=== PATIENT | male | born 1995 | race Caucasian/White ===

== ENCOUNTER 2021-02-01 20:54 | Emergency (ER) | payer MEDICAID ==
[~2021-02-01] VITALS: Ht 180.3 cm; Wt 89.8 kg
--- NOTE | 2021-02-01 21:28 | NUR ---
PT AMBULATED TO ER WITH C/O PAINFUL MASS ON BUTTOCK X3 DAYS. AFEBRILE.
--- NOTE | 2021-02-01 21:35 | NUR ---
DR. MACIEL AT BEDSIDE, MSE IN PROGRESS.
[2021-02-01] MEDS: LIDOCAINE 2%-EPI 1:100,000 20 ML VIAL IJ ONE (21:48)
[2021-02-01] MEDS ORDERED: SULF1TAB48 PO (22:34)
[2021-02-01] MEDS ORDERED: OXYC-128 PO (22:34)
[2021-02-01] MEDS: SULFAMETH/TRIMETH 800/160 MG TABLET PO ONE (22:35)
[2021-02-01] MEDS ORDERED: SULFAMETH/TRIMETH 800/160 MG TABLET ONE (22:44)
--- NOTE | 2021-02-01 22:48 | NUR ---
Patient discharged to home in stable condition. No changes in LOC. Written and verbal after care instructions given. Patient verbalizes understanding of instructions. Stressed follow up or return to ER for worsening s/s. Steady gait, picked up by mother.
[2021-02-01 22:49] VITALS: BP 129/86
== END 2021-02-01 22:49 | disposition home or self-care (01) ==
LOC: ER 20:56
DX: L05.01 Pilonidal cyst with abscess (principal); Z91.013 Allergy to seafood
CPT/HCPCS: 10080; 87070; 99284; J3490; 87077; A4663

== ENCOUNTER 2021-02-03 14:12 | Emergency (ER) | payer MEDICAID ==
[~2021-02-03] VITALS: Ht 175.3 cm; Wt 89.8 kg
[~2021-02-03 14:12] MED LIST: OXYC-128 PO; SULF1TAB48 PO
--- NOTE | 2021-02-03 15:30 | NUR ---
at bedside for assessment
--- NOTE | 2021-02-03 15:30 | NUR ---
Abscess packing removed from sacral area at this time, area redressed with abdominal pad and paper tape at this time
--- NOTE | 2021-02-03 16:23 | NUR ---
Patient discharged to home in stable condition. PAtient instructed on signs of infection and to return to ER if any appear. No signs of distress noted. Written and verbal after care instructions given. Patient verbalizes understanding of instructions. Stressed follow up or return to ER for worsening s/s.
[2021-02-03 16:24] VITALS: BP 115/76
== END 2021-02-03 16:20 | disposition home or self-care (01) ==
LOC: ER 14:12
DX: Z48.817 Encounter for surgical aftercare following surgery on the skin and subcutaneous tissue (principal); L05.01 Pilonidal cyst with abscess; Z91.013 Allergy to seafood
CPT/HCPCS: A4663

== ENCOUNTER 2021-02-27 13:18 | Emergency (ER) | payer MEDICAID ==
[~2021-02-27] VITALS: Ht 177.8 cm; Wt 90.7 kg
--- NOTE | 2021-02-27 13:32 | NUR ---
PT IS IN ROOM #2A. DR GONZALEZ EVALUATED THE PT.
[2021-02-27 13:53] LABS: HEMATOCRIT 42.7 % (36.7-47.1); MEAN CORPUSCULAR HEMOGLOBIN 29.2 uug (23.8-33.4); MEAN CORPUSCULAR VOLUME 85.5 fL (73.0-96.2); PLATELET COUNT (AUTO) 304 K/uL (152-348)
[2021-02-27 13:57] LABS: CREATININE 1.3 mg/dL (0.6-1.3); POTASSIUM 3.2 mmol/L (3.5-5.1)
[2021-02-27 14:04] LABS: BILIRUBIN,DIRECT 0.1 mg/dL (0.0-0.2); BILIRUBIN,TOTAL 0.4 mg/dL (0.2-1.0); TOTAL PROTEIN, SERUM 8.3 g/dL (6.4-8.2)
[2021-02-27] MEDS ORDERED: FLUC100T8 PO (14:38)
[2021-02-27 14:43] VITALS: BP 134/84
== END 2021-02-27 14:43 | disposition home or self-care (01) ==
LOC: ER 13:18
DX: B37.0 Candidal stomatitis (principal); Z91.013 Allergy to seafood
CPT/HCPCS: 36415; 85025; 87806; A4663